=== PATIENT | female | born 1945 | race African-American/Black ===

== ENCOUNTER 2017-01-11 15:01 | Emergency (ER) | payer MEDICARE, OTHER ==
[~2017-01-11] VITALS: Ht 167.6 cm; Wt 76.7 kg
[~2017-01-11 15:01] MED LIST: JENUVIA; LEVOTHYROXINE; LISIPOW; NOVOLIN; PYRIDOSTIGMINE; SIMVPOW2
[2017-01-11 16:09] LABS: Basophils # (auto) 0 uL; Basophils % (auto) 0.6 % (0.0-2.0); Eosinophils # (auto) 0.2 uL; Eosinophils % (auto) 3.5 % (0.0-7.0); Hematocrit 38.9 % (36.0-46.0); Hemoglobin 12.8 g/dL (12.2-16.2); Lymphocytes # (auto) 2.4 uL; Lymphocytes % (auto) 35.2 % (10.0-50.0); Mean Corpuscular Hemoglobin 27.8 pg (28.0-32.0); Mean Corpuscular Hgb Conc. 32.9 g/dL (32.0-36.0); Mean Corpuscular Volume 84.6 fL (80.0-100.0); Mean Platelet Volume 8.9 fL (7.4-10.4); Monocytes # (auto) 0.7 uL; Monocytes % (auto) 10.9 % (0.0-12.0); Neutrophils # (auto) 3.4 uL; Neutrophils % (auto) 49.8 % (37.0-80.0); Platelet Count (auto) 217 10^3/uL (140-450); Red Cell Distribution Width 15.2 % (11.6-16.0); White Blood Cell 6.8 10^3/uL (4.4-10.8)
[2017-01-11 16:33] LABS: Albumin 3.8 g/dL (3.4-5.0); BUN/Creatinine Ratio 18.1; Calcium 9.4 mg/dL (8.5-10.1); Potassium 3.5 mmol/L (3.5-5.1)
[2017-01-11] MEDS ORDERED: SODIUM CHLORIDE 0.9% 1,000 ML IV ONE (16:38)
[2017-01-11 16:45] LABS: Bilirubin, Total 0.6 mg/dL (0.2-1.0); Total Protein 8.2 g/dL (6.4-8.2)
[2017-01-11 18:37] VITALS: BP 125/60
== END 2017-01-11 18:45 | disposition home or self-care (01) ==
LOC: ER 15:18
DX: E86.0 Dehydration (principal); R42 Dizziness and giddiness; F32.9 Major depressive disorder, single episode, unspecified; R53.1 Weakness; I10 Essential (primary) hypertension; E11.9 Type 2 diabetes mellitus without complications; E07.9 Disorder of thyroid, unspecified; E78.5 Hyperlipidemia, unspecified; Z88.1 Allergy status to other antibiotic agents; Z79.4 Long term (current) use of insulin
CPT/HCPCS: 36415; 80053; 80320; 82962; 84484; 85025; 93005; 94761; 96360; 99285; J7030

== ENCOUNTER 2017-07-11 10:29 | Emergency (ER) | payer MEDICARE, MEDICAID ==
[~2017-07-11] VITALS: Ht 167.6 cm; Wt 79.4 kg
[2017-07-11 11:13] VITALS: BP 141/57
[2017-07-11] MEDS ORDERED: HYDROcodone-ACET 7.5/325MG TAB PO ONE (12:00)
== END 2017-07-11 12:26 | disposition home or self-care (01) ==
LOC: ER 10:29
DX: S46.911A Strain of unspecified muscle, fascia and tendon at shoulder and upper arm level, right arm, initial encounter (principal); M19.011 Primary osteoarthritis, right shoulder; I10 Essential (primary) hypertension; E78.5 Hyperlipidemia, unspecified; E11.9 Type 2 diabetes mellitus without complications; Z88.8 Allergy status to other drugs, medicaments and biological substances; Z88.1 Allergy status to other antibiotic agents; X50.0XXA Overexertion from strenuous movement or load, initial encounter; Y93.89 Activity, other specified; Y92.89 Other specified places as the place of occurrence of the external cause; Y99.8 Other external cause status
CPT/HCPCS: 73060; 93005

== ENCOUNTER 2017-07-14 10:48 | Emergency (ER) | payer MEDICARE, MEDICAID ==
[~2017-07-14] VITALS: Ht 167.6 cm; Wt 78.5 kg
[2017-07-14 10:55] VITALS: BP 169/70
== END 2017-07-14 11:56 | disposition left against medical advice (07) ==
LOC: ER 10:48
DX: M79.601 Pain in right arm (principal); Z53.21 Procedure and treatment not carried out due to patient leaving prior to being seen by health care provider

== ENCOUNTER 2018-09-13 10:04 | Emergency (ER) | payer OTHER, MEDICAID ==
[~2018-09-13] VITALS: Ht 167.6 cm; Wt 86.2 kg
[2018-09-13] MEDS ORDERED: SODIUM CHLORIDE 0.9% 1,000 ML IV ONE ×2 (10:14)
[2018-09-13] MEDS ORDERED: ONDANSETRON HCL 4 MG/2 ML VIAL IV ONE (10:15)
[2018-09-13 11:11] VITALS: BP 110/55
[2018-09-13 11:17] LABS: Basophils # (auto) 0 uL; Basophils % (auto) 0.5 % (0.0-2.0); Eosinophils # (auto) 0.3 uL; Eosinophils % (auto) 3.6 % (0.0-7.0); Hematocrit 38.8 % (36.0-46.0); Hemoglobin 12.7 g/dL (12.2-16.2); Lymphocytes # (auto) 1.3 uL; Lymphocytes % (auto) 15.2 % (10.0-50.0); Mean Corpuscular Hgb Conc. 32.7 g/dL (32.0-36.0); Mean Corpuscular Volume 85.7 fL (80.0-100.0); Monocytes # (auto) 0.6 uL; Monocytes % (auto) 7.4 % (0.0-12.0); Neutrophils # (auto) 6.4 uL; Neutrophils % (auto) 73.3 % (37.0-80.0); Platelet Count (auto) 202 10^3/uL (140-450); Red Blood Cells 4.52 10^6/uL (4.0-5.20); Red Cell Distribution Width 14.6 % (11.8-14.3); White Blood Cell 8.7 10^3/uL (4.4-10.8)
[2018-09-13 11:49] LABS: Albumin 3.6 g/dL (3.4-5.0); Calcium 8.5 mg/dL (8.5-10.1); Potassium 4.4 mmol/L (3.5-5.1)
[2018-09-13 12:00] LABS: BUN/Creatinine Ratio 11.6; Bilirubin, Total 0.5 mg/dL (0.2-1.0); Total Protein 8.2 g/dL (6.4-8.2)
== END 2018-09-13 13:10 | disposition home or self-care (01) ==
LOC: EDBD 10:04 → ER 10:09
DX: E11.65 Type 2 diabetes mellitus with hyperglycemia (principal); I10 Essential (primary) hypertension; E78.5 Hyperlipidemia, unspecified; E07.89 Other specified disorders of thyroid; Z98.51 Tubal ligation status; Z88.2 Allergy status to sulfonamides; Z88.8 Allergy status to other drugs, medicaments and biological substances
CPT/HCPCS: 36415; 71045; 74176; 80053; 82010; 84484; 85025; 93005; 96361; 96374; 99284; J2405; J7030

== ENCOUNTER 2020-05-17 03:04 | Emergency (ER) | payer MEDICAID, MEDICARE, OTHER ==
[~2020-05-17] VITALS: Ht 167.6 cm; Wt 81.6 kg
[2020-05-17 03:05] VITALS: BP 165/71
== END 2020-05-17 06:02 | disposition left against medical advice (07) ==
LOC: EDBD 03:04 → ER 03:12
DX: R19.7 Diarrhea, unspecified (principal); R53.1 Weakness; Z53.21 Procedure and treatment not carried out due to patient leaving prior to being seen by health care provider
CPT/HCPCS: 82962

== ENCOUNTER 2022-11-10 03:36 | Observation (INO) | payer OTHER, MEDICAID ==
[~2022-11-10] VITALS: Ht 152.4 cm; Wt 60.0 kg
[2022-11-10] MEDS ORDERED: DEXTROSE (50%) 50ML SYRG IV ONE ×2 (04:30→04:45)
[2022-11-10] MEDS ORDERED: ACCU-CHEK COMFORT CURVE STRIP VI ONE ×2 (04:30→04:45)
[2022-11-10] MEDS ORDERED: DEXTROSE 10% 1,000 ML IV ONE (05:00)
[2022-11-10 05:11] LABS: Basophils # (auto) 0 10 ^3/uL (0-0.2); Basophils % (auto) 0.6 % (0.0-2.0); Eosinophils # (auto) 0.3 10 ^3/uL (0-0.8); Eosinophils % (auto) 4.8 % (0.0-7.0); Hematocrit 35.9 % (36.0-46.0); Hemoglobin 11.7 g/dL (12.2-16.2); Lymphocytes # (auto) 1.9 10 ^3/uL (0.4-5.4); Lymphocytes % (auto) 26.5 % (10.0-50.0); Mean Corpuscular Hemoglobin 28.2 pg (28.0-32.0); Mean Corpuscular Hgb Conc. 32.6 g/dL (32.0-36.0); Mean Corpuscular Volume 86.3 fL (80.0-100.0); Monocytes # (auto) 0.8 10 ^3/uL (0-1.3); Monocytes % (auto) 11.4 % (0.0-12.0); Neutrophils % (auto) 56.7 % (37.0-80.0); Red Blood Cells 4.16 10^6/uL (4.0-5.20)
[2022-11-10 05:27] LABS: INR 1.03 (0.9-1.15); Partial Thromboplastin Time 27.1 sec (24.6-33.4)
[2022-11-10 05:33] LABS: Albumin 3.3 g/dL (3.4-5.0); BUN/Creatinine Ratio 19.2; Calcium 8.4 mg/dL (8.5-10.1); Potassium 3.6 mmol/L (3.5-5.1)
[2022-11-10 05:36] LABS: Bilirubin, Total 0.3 mg/dL (0.2-1.0); Total Protein 7.1 g/dL (6.4-8.2)
[2022-11-10] MEDS ORDERED: NITROGLYCERIN 0.4 MG SL TAB SL PRN (06:15)
[2022-11-10] MEDS ORDERED: MORPHINE SULFATE INJ 2 MG/ml SYRG IV PRN (06:15)
[2022-11-10] MEDS ORDERED: D5W/SOD CHL 0.45%/KCL 20MEQ 1,000 ML IV ONE (06:30)
[2022-11-10] MEDS ORDERED: DULO1CAP5 PO (15:26)
[2022-11-10] MEDS ORDERED: LISI20TA28 PO (15:26)
[2022-11-10 18:28] VITALS: BP 132/78
== END 2022-11-10 18:57 | disposition home or self-care (01) ==
LOC: EDBD 03:36 → ER 03:36 → TELE 06:22
PROVIDERS: ADMIT Internal Medicine; ATTEND Internal Medicine
DX: E11.649 Type 2 diabetes mellitus with hypoglycemia without coma (principal); Z20.822 Contact with and (suspected) exposure to COVID-19; R41.82 Altered mental status, unspecified; I10 Essential (primary) hypertension; T38.3X5A Adverse effect of insulin and oral hypoglycemic [antidiabetic] drugs, initial encounter; E78.5 Hyperlipidemia, unspecified; R55 Syncope and collapse; F32.9 Major depressive disorder, single episode, unspecified; Z79.4 Long term (current) use of insulin; Z98.51 Tubal ligation status
CPT/HCPCS: 36415; 70450; 71045; 74176; 80053; 82962; 83036; 83880; 84484; 85025; 85379; 85610; 85730; 87426; 87804; 93005; 96360; 96361; 99285; G0378

== ENCOUNTER 2024-05-27 10:59 | Emergency (ER) | payer OTHER, MEDICAID ==
[~2024-05-27] VITALS: Ht 167.6 cm; Wt 59.0 kg
[~2024-05-27 10:59] MED LIST changes: +DULO1CAP5 PO; +LISI20TA56 PO
[2024-05-27] MEDS: cefTRIAXone 1GM/50ML D5W 50 ML IV ONE (15:30)
[2024-05-27 16:00] VITALS: PULSE 89; RESP 16; O2SAT 98
[2024-05-27] MEDS: SODIUM CHLORIDE 0.9% 1,000 ML IV ONE (16:30)
[2024-05-27 17:36] LABS: Basophils # (auto) 0 10 ^3/uL (0-0.2); Basophils % (auto) 0.4 % (0.0-2.0); Eosinophils # (auto) 0 10 ^3/uL (0-0.8); Eosinophils % (auto) 0.2 % (0.0-7.0); Hematocrit 32.9 % (36.0-46.0); Hemoglobin 11.2 g/dL (12.2-16.2); Lymphocytes # (auto) 1.2 10 ^3/uL (0.4-5.4); Lymphocytes % (auto) 11.9 % (10.0-50.0); Mean Corpuscular Hemoglobin 28.1 pg (28.0-32.0); Mean Corpuscular Hgb Conc. 34.1 g/dL (32.0-36.0); Mean Corpuscular Volume 82.4 fL (80.0-100.0); Monocytes # (auto) 0.9 10 ^3/uL (0-1.3); Monocytes % (auto) 8.3 % (0.0-12.0); Neutrophils # (auto) 8.2 10 ^3/uL (1.6-8.6); Neutrophils % (auto) 79.2 % (37.0-80.0); Platelet Count (auto) 291 10^3/uL (140-450); Red Blood Cells 3.99 10^6/uL (4.0-5.20); Red Cell Distribution Width 15.1 % (11.8-14.3); White Blood Cell 10.3 10^3/uL (4.4-10.8)
[2024-05-27 17:43] LABS: Albumin 3.9 g/dL (3.2-4.8); Alkaline Phosphatase 73 U/L (46-116); Anion Gap 6 (5-15); Aspartate Aminotransferase 10 U/L (13-40); Bilirubin, Total 0.7 mg/dL (0.2-1.0); Blood Urea Nitrogen 29 mg/dL (9-23); Calcium 9.7 mg/dL (8.7-10.4); Carbon Dioxide 27 mmol/L (20-30); Chloride 98 mmol/L (98-107); Glucose 135 mg/dL (74-106); Potassium 4.6 mmol/L (3.5-5.1); Sodium 131 mmol/L (136-145); Total Protein 7.7 g/dL (5.7-8.2)
[2024-05-27] MEDS: metroNIDAZOLE 500 MG TAB PO ONE (17:43)
[2024-05-27] MEDS: ONDANSETRON HCL 4 MG/2 ML VIAL IV ONE (17:44)
[2024-05-27] MEDS: AZITHROMYCIN 250 MG TAB PO ONE (17:44)
[2024-05-27] MEDS: MORPHINE SULFATE 4 MG/ML SYR/VIAL IV ONE (17:53)
[2024-05-27 18:07] LABS: Alanine Aminotransferase < 9 U/L (7-40)
[2024-05-27] MEDS ORDERED: ACET-1304 PO (19:51)
[2024-05-27] MEDS ORDERED: CEPH500T PO (19:51)
[2024-05-27 21:05] VITALS: BP 110/60; TEMP 98.2
[2024-05-27 21:06] VITALS: PULSE 84; RESP 16; O2SAT 95
== END 2024-05-27 22:00 | disposition home or self-care (01) ==
LOC: EDBD 10:59 → EDUNIT# 10:59 → ER 10:59
DX: N89.8 Other specified noninflammatory disorders of vagina (principal); R10.9 Unspecified abdominal pain; I10 Essential (primary) hypertension; E11.9 Type 2 diabetes mellitus without complications; E78.5 Hyperlipidemia, unspecified; F32.9 Major depressive disorder, single episode, unspecified; Z98.890 Other specified postprocedural states; Z88.8 Allergy status to other drugs, medicaments and biological substances; Z79.899 Other long term (current) drug therapy
CPT/HCPCS: 36415; 74176; 80053; 85025; 96361; 96365; 96375; 99285; J0696; J2405; J7030